=== PATIENT | female | born 1955 | race Caucasian/White ===

== ENCOUNTER → 2019-07-05 14:25 | Outpatient (CLI) | payer OTHER ==
--- NOTE | 2019-07-10 08:48 | ST ---
PATIENT:MARLINE HERZOG MEDICAL RECORD: [id number] SEX: F LOCATION:[facility] ORDER #: ADMISSION DATE: 07/05/19 AGE OF PATIENT: 63 REFERRING PHYSICIAN: INTERPRETING PHYSICIAN: DAVID BECKER MD DATE OF SERVICE: 07/05/2019 Baseline ECG is normal. Exercised for 6 minutes and 34 seconds on Curtis protocol. Maximum heart rate is 166 beats per minute, greater than 100% maximum predicted. No ECG changes of ischemia. No symptoms of ischemia. Normal blood pressure response to exercise. No arrhythmias noted. Fair exercise tolerance for age. TRANSINT:[id number] Voice Confirmation ID: [id number] DOCUMENT ID: [id number] DAVID BECKER MD at 0848 CC: [id number] DICTATION DATE: 07/07/19 1011 CLAIMS SPECIALIST: 07/07/19 1040 DEP CLI 07/05/[address] [address]
--- NOTE | 2019-07-10 08:49 | EC ---
PATIENT:MARLINE HERZOG DATE OF SERVICE: 07/05/19 SEX: F MEDICAL RECORD: [id number] DATE OF : 59 LOCATION:[facility], [facility]IN [facility] AGE OF PATIENT: 63 ADMISSION DATE: 07/05/19 REFERRING PHYSICIAN: INTERPRETING PHYSICIAN: DAVID BECKER MD ECHOCARDIOGRAM REPORT ECHO CHARGES 4 ECHO COMPLETE Date: 07/05/19 CLINICAL DIAGNOSIS: DYSPNEA ECHOCARDIOGRAPHIC MEASUREMENTS (adult normal given) AC root (d.<3.7cm) 2.9 cm LV Septum d (<1.2 cm> 1.2 cm Valve Excursion 1.4 cm LV Septum (systole) 1.4 cm Left Atria (s.<4.0cm> 3.3 cm LVPW d(<1.2cm) 1.1 cm RV (d.<2.3cm) 3.6 cm LVPW (sytole) 1.7 cm LV diastole(<5.6CM) 4.8 cm MV E-F(>70mm/sec) cm LV systole 2.9 cm LVOT Diameter 1.7 cm MV exc.(>10mm) 1.7 cm Est.ejection fraction (50-75%) % DOPPLER: LVIT cm/sec A 127 cm/sec E 32.0 cm/sec LA cm/sec RVSP 27 mmHg LVOT 105 cm/sec AOP1/2T m/s Asc. Ao 152 cm/sec RVOT 74 cm/sec RA cm/sec PA 95 cm/sec AV Gradient Peak 9.29 mmHg AV Mean 5.42 mmHg AV Area 1.6 cm MV Gradient Peak 7.66 mmHg MV Mean 3.32 mmHg MV Area cm COMMENTS: Radiology Physician: 2 NAHUM MEDEIROS Financial Foundations Representative: 3 Dr. Martinez TAPE# PACS Pericardial Effusion N DATE OF SERVICE: Adequate 2D, color flow imaging, spectral Doppler, and M-Mode Borderline LVH. LV internal dimensions are normal. Wall motion is normal. EF is greater than or equal to 55%. Aortic valve is tricuspid. No evidence of stenosis by Doppler interrogation. Left atrium is normal at 3.3 cm. Mitral valve shows no prolapse. Trace MR. Right-sided chambers are grossly normal. Mild TR. ECHOCARDIOGRAM REPORT [id number] MARLINE HERZOG TRANSINT:[id number] Voice Confirmation ID: [id number] DOCUMENT ID: [id number] DAVID BECKER MD at 0849 CC: [id number] DICTATION DATE: 07/07/19 1036 MOVIE PROJECTIONIST: 07/07/19 1150 DEP CLI 07/05/19 [facility] [address] [place] [address]
== END | disposition home or self-care (01) ==
LOC: D.HCCECHO 14:25
PROVIDERS: ATTEND Internal Medicine Interventional Cardiology
DX: I20.9 Angina pectoris, unspecified (principal); R06.00 Dyspnea, unspecified

== ENCOUNTER → 2020-03-26 08:48 | Outpatient (CLI) | payer OTHER | END | disposition home or self-care (01) | LOC: D.HCCARDIO 08:48 | PROVIDERS: ATTEND Internal Medicine Cardiovascular Disease | DX: I20.9 Angina pectoris, unspecified (principal) ==

== ENCOUNTER 2020-04-09 06:57 | Day surgery (SDC) | payer OTHER ==
[~2020-04-09] VITALS: Ht 165.1 cm; Wt 104.3 kg
--- NOTE | ~2020-04-09 | HEMODYNAMI ---
PATIENT:MARLINE HERZOG MEDICAL RECORD: [id number] : 59 LOCATION:D.CAT ADMISSION DATE: 04/09/20 Generatedon:04/09/20209:26 Patient name: MARLINE HERZOG Patient #: [id number] SSN: [id number] : 1955 Date of study: 04/09/2020 Page: Of Hemodynamic Procedure Report Patient Data Patient Demographics Procedure consent was obtained First Name: MARLINE Gender: Female Last Name: MINO : 1955 Patient #: [id number] Age: 64 year(s) Race: SSN: [id number] Additional ID: [id number] Contact details Address: [address] [place] [address] State: [place] City: [place] Zip code: [address] Past Medical History Performed procedures and imaging results Date Procedure Procedure Results Comments 03/26/2020 Stress testing Positive->Intermediate with SPECT MPI risk Allergies: No known allergies Admission Admission Data Admission Date: 04/09/2020 Admission Time: 6:57 Arrival Date: 04/09/2020 Arrival Time: 0:00 Admit Source: Other Insurance Payor: Private health insurance [facility] #: [id number] Height (in.): 65 BSA: 2.06 (m2) Height (cm.): 165.1 BMI: 36.61 (kg/m2) Weight (lbs.): 220 Weight (kg.): 99.79 Lab Results Lab Result Date: 04/09/2020 Lab Result Time: 0:00 Biochemistry Name Units Result Min Max BUN mg/dl 14 --(--*-)-- 7 18 Creatinine mg/dl 0.9 --(-*--)-- 0.6 1.3 eGFR ml/min 67.56646 *-(----)-- 90 120 NONAFRICAN CBC Name Units Result Min Max Hematocrit % 36.6 *-(----)-- 42 54 Hemoglobin g/dl 12 *-(----)-- 13.5 17.5 Procedure Procedure Types Cath Procedure Diagnostic Procedure [facility] w/Coronaries Sedation Charges Moderate Sedation up to 15 minutes Procedure Description Procedure Date Procedure Date: 04/09/2020 Procedure Start Time: 9:06 Procedure End Time: 9:23 Procedure Staff Name Function Lul Shaver MD Performing Physician Uriah Booth RN Nurse Ila Gonzalez RT Scrub Criss Maria RT Monitor Qing Bernal RT Spray Applicator Procedure Data Cath Procedure Fluoroscopy Diagnostic fluoroscopy Total fluoroscopy Time: 7.5 time: 7.5 min min Diagnostic fluoroscopy Total fluoroscopy dose: 986 dose: 986 mGy mGy Contrast Material Contrast Material Type Amount (ml) Isovue 370 70 Entry Location Entry Primary Successful Side Size Upsize Upsize Entry Closure Pedersen ccessful Closure Location (Fr) 1 (Fr) 2 (Fr) Remarks Device Remarks Radial Right 6 Fr Mechanical artery Short Compression Estimated blood loss: 5 ml Diagnostic catheters Device Type Used For End Catheter Placement DIAGNOSTIC [place] 110cm 5 Procedure Fr catheter ([id number]) DIAGNOSTIC [place] MOD 5Fr Procedure Catheter ([id number]) DIAGNOSTIC JL 3.5 5Fr Procedure catheter ([id number]) DIAGNOSTIC Pigtail 5Fr Procedure catheter ([id number]) Procedure Complications No complications Procedure Medications Medication Administration Route Dosage Oxygen etCO2 Nasal cannula 2 l/min Lidocaine 2% added to field 20 Heparin Flush Bag added to field 2 bags (1000units/500ml NS) 0.9% NaCl I.V. 100 ml/hr Radial Cocktail added to field 1 syringe (Verapamil 2mg/Nitro 400mcg/Heparin 1500units) Versed I.V. 1 mg Fentanyl I.V. 50 mcg Versed I.V. 1 mg Fentanyl I.V. 50 mcg Hemodynamics Rest BSA: 2.06 (m2) HGB: 12 (g/dl) O2 Consumption: Estimated: 203.59 (ml/min) O2 Cons umption indexed: Estimated:98.83 (ml/min/m) Heart Rate: 82 (bpm) Pressure Samples Time Site Value (mmHg) Purpose Heart Use Rate(bpm) 9:09 LV 147/100,86 Snapshot 87 Snapshots Pre Cath Intra NCS Post Cath Vital Signs Time Heart Resp SPO2 etCO2 NIBP (mmHg) Rhythm Pain Sedation Rate (ipm) (%) (mmHg) Status Level (bpm) 8:50:42 82 14 98 0 141/82(119) NSR 0 (11) 10(A) , No pain 8:54:58 88 10 98 0 139/91(118) NSR 0 (11) 10(A) , No pain 8:59:14 83 12 98 44.2 140/84(106) NSR 0 (11) 10(A) , No pain 9:03:20 79 19 100 41.3 124/73(112) NSR 0 (11) 10(A) , No pain 9:07:30 80 19 100 43.5 138/77(104) NSR 0 (11) 10(A) , No pain 9:11:41 83 10 100 42 132/73(108) NSR 0 (11) 10(A) , No pain 9:15:55 83 12 100 40.5 127/75(94) NSR 0 (11) 10(A) , No pain 9:20:07 85 15 100 42.8 139/78(109) NSR 0 (11) 10(A) , No pain Medications Time Medication Route Dose Verified Delivered Reason Notes Effectiveness by by 8:57:35 Oxygen etCO2 2 l/min Lul Kruse used for Nasal St Parveen Booth RN procedure cannula 8:57:42 Lidocaine 2% added 20ml Lul Mccarty for local to vial [facility], [facility]1983 anesthetic field MD ARAUJO 8:57:48 Heparin Flush added 2 bags Lul Mccarty used for Bag to [facility] procedure (1000units/500ml field MD ARAUJO NS) 8:57:57 0.9% NaCl I.V. 100 Lul Kruse Per ml/hr St Parveen Booth RN physician 9:03:23 Versed I.V. 1 mg Lul Sharlaie for sedation St Parveen Booth RN, MD 9:03:28 Fentanyl I.V. 50 mcg Lul Buffie for sedation St Parveen Booth RN, MD 9:07:49 Radial Cocktail added 1 Lul Lul for (Verapamil to syringe [facility], [facility]1983 vasodilation 2mg/Nitro field MD ARAUJO 400mcg/Heparin 1500units) 9:08:03 Versed I.V. 1 mg Lul Sharlaie for sedation St Parveen Booth RN, MD 9:08:07 Fentanyl I.V. 50 mcg Lul Magdalenoie for sedation St Parveen Booth RN, MD Procedure Log Time Note 8:04:59 Informed consent obtained and on chart 8:05:39 Diagnostic Cath Status : Elective 8:05:54 Arrival Date: 04/09/2020 12:00:00 AM 8:05:55 Admit Source: Other 8:05:59 Insurance Payor : Private health insurance 8:06:21 Patient Height : 65 inches 8:06:25 Patient Weight : 220 lbs 8:08:47 Patient allergic to No known allergies 8:09:06 Procedure Status Elective Heart Cath (OP). 8:09:08 Time tracking: Regular hours (M-F 7:00 - 5:00) 8:09:12 Plan of Care:Hemodynamics will remain stable., Cardiac rhythm will remain stable., Comfort level will be maintained., Respiratory function will remain adequate., Patient/ family verbilizes understanding of procedure., Procedure tolerated without complication., Recovers from procedure without complications.. 8:09:26 H&P Date Dictated: 03/11/2020 Within 30 days and on chart.. 8:09:26 Pre-procedure instructions explained to patient. 8:09:27 Pre-op teaching completed and patient verbalized understanding. 8:09:29 Family unavailable. 8:09:31 Patient NPO since Midnight. 8:12:50 Stress Test: yes; abnormal anterior and apical 8:12:53 Alarms reviewed by R. N. 8:12:54 Sharps counted by scrub and verified by R.N. 8:14:08 Lab Result : Hemoglobin 12 g/dl 8:14:08 Lab Result : Hematocrit 36.6 % 8:41:20 Qing Bernal RT(R) sent for patient. Start room use. 8:42:43 Lab results completed and on chart. 8:45:55 Patient received from Pre/Post Procedure Room to CCL 2 Alert and oriented. Tansferred to table in Supine position. 8:45:56 Warm blankets applied, and dagmar hugger turned on for patient comfort. 8:45:57 Correct patient and procedure confirmed by team. 8:45:57 ECG and BP/O2 sat monitors applied to patient. 8:46:01 Is the patient allergic to Iodine/contrast media? No. 8:46:03 Was the patient premedicated? N/A 8:49:32 Vital chart was started 8:49:34 Full Disclosure recording started 8:49:40 Is patient on blood thinner?No 8:49:42 Patient diabetic? No. 8:49:43 If diabetic: On Metformin? N/A 8:49:44 ----Pre-sedation anethsthesia assessment.---- 8:49:48 Previous problem with sedation/anesthesia? No ? 8:49:49 Snore? Yes 8:49:51 Sleep apnea? Yes 8:49:52 Deviated septum? No 8:49:53 Opens mouth fully? Yes 8:49:54 Sticks out tongue? Yes 8:49:56 Airway obstruction? No ? 8:49:58 Dentures? No ? 8:50:03 Pre procedure: right dorsailis pedis pulse 2+ Normal; easily identifiable; not easily obliterated 8:50:06 Modified Wilbert's test Ulnar < 7 seconds 8:50:07 Patient pain scale 0/10 ?. 8:50:12 IV patent on arrival in right antecubital with 0.9% NaCl at O. 8:50:18 Right Radial & Right Groin area was prepped with chlora-prep and draped in sterile fashion 8:50:23 Baseline sample Acquired. 8:50:28 Rhythm: sinus rhythm 8:50:31 Use device set Radial Dx or PCI 8:50:32 ACIST Syringe (73869) opened to sterile field. 8:50:33 Medline Cath Pack ([id number]) opened to sterile field. 8:50:34 Bag Decanter (2002) opened to sterile field. 8:50:34 ACIST Hand Control (82683) opened to sterile field. 8:50:35 ACIST Manifold (57590) opened to sterile field. 8:50:37 MBrace Wrist Support ([id number]) opened to sterile field. 8:50:39 EMERALD Guide Wire (985-378) opened to sterile field. 8:50:40 SHEATH 6FR RAIN (3741913) opened to sterile field. 8:57:35 Oxygen 2 l/min etCO2 Nasal cannula was administered by Uriah Booth RN; used for procedure; Verbal order read back and verified. 8:57:42 Lidocaine 2% 20ml vial added to field was administered by Lul Shaver MD; for local anesthetic; Verbal order read back and verified. 8:57:48 Heparin Flush Bag (1000units/500ml NS) 2 bags added to field was administered by Lul Shaver MD; used for procedure; Verbal order read back and verified. 8:57:57 0.9% NaCl 100 ml/hr I.V. was administered by Uriah Booth RN; Per physician; Verbal order read back and verified. 9:02:40 --------ALL STOP TIME OUT------ 9:02:40 Final Timeout: patient, procedure, and site verified with staff and physician. All members of the team are in agreement. 9:02:42 Right Radial & Right Groin site verified by team. 9:02:46 Fire Safety Assessment: A--An alcohol-based skin anteseptic being used preoperatively., C--Open oxygen or nitrous oxide is being used., D--An ESU, laser, or fiber-optic light is being used. 9:02:50 Physical assessment completed. ASA score P 2 - A patient with mild systemic disease as per Lul Shaver MD. 9:02:59 Sedation plan: IV Moderate Sedation Medication:Versed, Fentanyl 9:03:23 Versed 1 mg I.V. was administered by Uriah Booth RN; for sedation; Verbal order read back and verified. 9:03:28 Fentanyl 50 mcg I.V. was administered by Uriah Booth RN; for sedation; Verbal order read back and verified. 9:06:23 2) 60-89 Mildly reduced kidney function, and other findings (as for stage 1) point to kidney disease. 9:06:25 Maximum allowable contrast dose (3.7 X eGFR X 0.75)186 ml. 9:06:29 Procedure started. 9:06:34 Local anesthetic to right radial artery with Lidocaine 2% by Lul Shaver MD.INITIAL ACCESS ONLY 9:07:19 Lab Result : Creatinine 0.9 mg/dl 9:07:19 Lab Result : BUN 14 mg/dl 9:07:19 Lab Result : eGFR NONAFRICAN 67.11117 ml/min 9:07:32 A 6 Fr Short sheath was inserted into the Right Radial artery 9:07:49 Radial Cocktail (Verapamil 2mg/Nitro 400mcg/Heparin 1500units) 1 syringe added to field was administered by Lul Shaver MD; for vasodilation; Verbal order read back and verified. 9:08:03 Versed 1 mg I.V. was administered by Uriah Booth RN; for sedation; Verbal order read back and verified. 9:08:07 Fentanyl 50 mcg I.V. was administered by Uriah Booth RN; for sedation; Verbal order read back and verified. 9:08:24 A DIAGNOSTIC [place] 110cm 5 Fr catheter (654345) was advanced over the wire and used for Procedure. 9:10:27 LCA angiography performed. 9:10:30 Injector settings: Ml/sec: 3, Volume: 6, 9:12:33 Catheter exchanged over wire. 9:12:49 A DIAGNOSTIC [place] MOD 5Fr Catheter ([id number]) was advanced over the wire and used for Procedure. 9:13:53 RCA angiography performed. 9:13:55 Injector settings: Ml/sec: 3, Volume: 6, 9:14:41 Catheter exchanged over wire. 9:15:46 A DIAGNOSTIC JL 3.5 5Fr catheter ([id number]) was advanced over the wire and used for Procedure. 9:16:32 LCA angiography performed. 9:16:35 Injector settings: Ml/sec: 3, Volume: 6, 9:17:13 Catheter exchanged over wire. 9:17:16 A DIAGNOSTIC Pigtail 5Fr catheter (992913M) was advanced over the wire and used for Procedure. 9:17:22 LV gram done using CORONADO 9:17:38 Injector settings: Ml/sec: 5, Volume: 15, 9:20:40 UNABLE TO CANNULATE FOR LV GRAM. 9:20:55 Catheter removed. 9:20:59 ZEPHYR REGULAR TR BAND (662065) opened to sterile field. 9:21:13 Sheath removed intact; hemostasis achieved with Mechanical Compression to the Right Radial artery. 9:21:15 Procedure ended.(Physican Out) 9:21:25 Fluoroscopy time 07.50 minutes. 9:21:29 Fluoroscopy dose: 986 mGy 9:21:29 Flurop Dose total: 986 9:21:34 Dose Area Product 27912 mGy/cm. 9:21:37 Contrast amount:Isovue 370 70ml. 9:21:41 Maximum allowable dose exceeded? No. 9:21:42 Sharps counted by scrub and verified by R.N. 9:21:46 [place] band inflated with 10cc of air. 9:21:47 Post Procedure Pulses reassessed and unchanged 9:21:51 Post procedure: right dorsailis pedis pulse 2+ Normal; easily identifiable; not easily obliterated. 9:21:57 Post-procedure physical assessment completed. ASA score P 2 - A patient with mild systemic disease as per Lul Shaver MD. 9:21:59 Post procedure rhythm: unchanged. 9:22:02 Estimated blood loss: 5 ml 9:22:03 Post procedure instruction explained to patient.Patient verbalizes understanding. 9:22:04 Patient needs reinforcement of post procedure teaching. 9:22:23 Procedure type changed to Cath procedure, Diagnostic procedure, LHC, LHC w/Coronaries, Sedation Charges, Moderate Sedation up to 15 minutes 9:22:25 Procedure and supply charges have been captured, reviewed, submitted and are correct. 9:22:28 Procedure Complication : No complications 9:22:32 [facility] Findings: mild to moderate CAD (<70%) 9:22:36 Operative report dictated upon procedure completion. 9:22:36 See physician's report for complete and final results. 9:22:38 Report given to Pre/Post Procedure Room. 9:22:41 Patient transfered to Pre/Post Procedure Room with Stretcher. 9:23:21 Vital chart was stopped 9:23:23 Procedure ended. 9:23:23 Full Disclosure recording stopped 9:24:28 End room use (Document Last) 9:25:04 End room use (Document Last) 9:25:22 End room use (Document Last) Device Usage Item Name Manufacture Quantity Catalog Hospital Part Current Minima l Lot# / Number Charge Number Stock Stock Serial# Code ACIST Acist 1 75507 974924 562243 316388 20 Syringe Medical (38942) Systems Inc Medline Medline 1 [id number] 746554 42464 887771 5 Cath Pack ([id number]) Bag Microtek 1 288580 20923 575649 5 Decanter Medical Inc. () ACIST Hand Acist 1 95562 749403 539408 273104 5 Control Medical (12025) Systems Inc ACIST Acist 1 21670 461501 729856 030643 5 Manifold Medical (78170) Systems Inc MBrace Advanced 1 140-0250-00 027424 34601 321693 5 Wrist Vascular Support Dynamics (439506438) EMERALD Cardinal 1 240-642 649370 093147 078176 5 Guide Wire Health (198-455) SHEATH 6FR Cardinal 1 5447836 829071 3082849 655872 5 [facility] Health (4513889) DIAGNOSTIC Terumo 1 40-2433 185931 860149 535776 5 [place] 110cm 5 Fr catheter (207637) DIAGNOSTIC Cardinal 1 608064J 574831 615692 626194 15 [place] MOD 5Fr Health Catheter (770004B) DIAGNOSTIC Cardinal 1 346262D 879361 963199 132316 5 JL 3.5 5Fr Health catheter (831674D) DIAGNOSTIC Cardinal 1 [id number] 297141 461391 456779 5 Pigtail 5Fr Health catheter (131874Z) ZEPHYR Cardinal 1 121985 608880 2490176 778644 5 REGULAR TR Health BAND (616428) Signature Audit [place] Stage Time Signature Unsigned Intra-Procedure 04/09/2020 Criss Maria 9:25:04 AM RT(R) Intra-Procedure 04/09/2020 Uriah Booth RN 9:25:22 AM Intra-Procedure 04/09/2020 Lul Hernández 9:26:48 AM Parveen ARAUJO Signatures Performing Physician : Signature : Lul Shaver MD Date : Time : Nurse : Uriah Booth RN Signature : Date : Time : Monitor : Criss Maira Signature : RT Date : Time : [facility] [address] [place] [place] [address]
[2020-04-09] MEDS ORDERED: WELLBUTRIN SR150 MG PO (07:37)
[2020-04-09 08:00] VITALS: BP 137/68; Ht 165.1 cm; Wt 104.3 kg
[2020-04-09 08:06] LABS: BASOPHILS 0.3 % (0-2); EOSINOPHILS 1.9 % (0-7); HEMATOCRIT 36.6 % (36.0-48.0); IMMATURE GRANULOCYTES 0.2 % (0-5); LYMPHOCYTES 41.1 % (15-50); MCH 30.7 pg (26.0-34.0); MCHC 32.8 g/dL (31.0-37.0); MCV 93.6 fL (80.0-100.0); MONOCYTES 11.2 % (2-11); NEUTROPHILS 45.3 % (40-80); PLATELET COUNT 245 10x3/uL (130-400); RBC 3.91 10x6/uL (4.00-5.40); RDW 13.8 % (11.5-14.5); WBC 6.4 10x3/uL (4.8-10.8)
--- NOTE | 2020-04-09 08:18 | HP ---
PATIENT: MARLINE HERZOG MEDICAL RECORD: [id number] ACCOUNT: [id number] LOCATION:[facility] : 59 ADMISSION DATE: 04/09/20 PCP: MARY LANDERS HISTORY AND PHYSICAL EXAMINATION HISTORY OF PRESENT ILLNESS: A 64-year-old female with a history of abnormal ECG who was referred initially to the office after having an abnormal ECG and had symptomology noted with Cardiolite stress testing, found to have reversible ischemia, she is being brought to the lab for diagnostic angiography with definitive diagnosis. PAST MEDICAL HISTORY: Includes: 1. History of hypertension. 2. Abnormal ECG fibrillation. PHYSICAL EXAMINATION: GENERAL: Pleasant, in no acute distress, appears stated age. HEENT: Normocephalic, atraumatic. NECK: No JVD or bruit. HEART: Regular. LUNGS: Good excursion. ABDOMEN: Soft, nontender. EXTREMITIES: Pulses 2+ with no edema. DIAGNOSTIC DATA: Nuclear imaging is abnormal as described above. PLAN: We will plan for angiography. Further recommendations based on above. TRANSINT:[id number] Voice Confirmation ID: [id number] DOCUMENT ID: [id number] DAVID BECKER MD at 0818 CC: [id number] DICTATION DATE: 04/08/20 1340 PILOT MANAGER: 04/08/20 [address] [place] [address]
[2020-04-09 09:00] LABS: ANION GAP 10.2 mmol/L (8-16); CALCIUM 8.9 mg/dL (8.5-10.1); CARBON DIOXIDE 27.9 mmol/L (21.0-32.0); CHOL - HDL RATIO 3.1 ratio (2.3-4.1); CREATININE - SERUM 0.9 mg/dL (0.6-1.3); LDL-HDL RATIO 1.9 ratio (1.5-3.5); POTASSIUM - SERUM 4.1 mmol/L (3.5-5.1)
--- NOTE | 2020-04-09 09:35 | NUR ---
PT RECEIVED VIA STRETCHER FROM INVENTORY MANAGEMENT SPECIALIST FOR PROCEDURE. PT AWAKE BUT DROWSY. PT DENIES PAIN OR DISCOMFORT. IV PATENT INFUSING VIA R ARM PER ORDERS. PT PLACED ON CARDIAC MONITORS, HR NSR RTE 81, BP 142/72, RR 14, SAT 97 ON ROOM AIR. PT INSTRUCTED NOT TO USE R ARM, SHE VERBALIZED UNDERSTANDING. AT BS, CALL LIGHT IN REACH
--- NOTE | 2020-04-09 10:03 | NUR ---
ZBAND AND IMMOBILIZER IN PLACE, NO S/S HEMATOMA NOTED. PT VOIDED 300 CC CLEAR YELLOW URINE IN BEDPAN. HOB ELEVATED, PO FLUIDS GIVEN. VSS. PT DENIES OTHER NEEDS AT THIS TIME, AT BS
--- NOTE | 2020-04-09 10:47 | NUR ---
PT DOING WELL, 5CC AIR REMOVED FROM Z BAND, NO BLEEDING OR S/S HEMATOMA NOTED. VSS. PT DENIES NEEDS AT THIS TIME. CALL LIGHT IN REACH
--- NOTE | 2020-04-09 11:20 | NUR ---
IV REMOVED W CATH INTACT, MONITORS REMOVED. REMAINING AIR REMOVED FROM Z BAND, NO BLEEDING NOTED. PT UP TO DRESS FOR DISCHARGE.
--- NOTE | 2020-04-09 11:35 | NUR ---
DISCHARGE INSTRUCTIONS REVIEWED W PT AND SHE VERBALIZED UNDERSTANDING. ZBAND REMOVED NO BLEEDING OR S/S HEMATOMA NOTED. 2X2 AND SM TEGADERM DRESSING APPLIED. 1140 PT DISCHARGE VIA WC TO WAITING IN PRIVATE VEHICLE. PT HAD ALL BELONGINGS AND DISCHARGE INSTRUCTIONS
--- NOTE | 2020-04-11 08:09 | OP ---
PATIENT NAME: MARLINE HERZOG MEDICAL RECORD: [id number] :59 LOCATION:D.CAT ADMISSION DATE: SURGEON: DAVID BECKER MD DATE OF OPERATION: 04/09/2020 PROCEDURE: Left heart catheterization, selective coronary angiography, right radial approach. CATHETERS: Radial sheath, [place] catheter. The procedure was well tolerated. The patient was returned to the longo. Sheath removed. TR band was placed. FINDINGS: Left ventriculography not performed. EF normal via nuclear stress testing at 70%. CORONARY ANATOMY: LEFT MAIN: Left main is free of disease. LAD: Free of disease in the diagonal system. CIRCUMFLEX: Free of disease in the marginal system. RIGHT CORONARY ARTERY: Free of disease. IMPRESSION: Normal left ventricular systolic function, normal coronary anatomy. TRANSINT:[id number] Voice Confirmation ID: [id number] DOCUMENT ID: [id number] DAVID BECKER MD at 0809 CC: [id number] DICTATION DATE: 04/09/20927 LABOR EXPEDITER: 04/09/20 1246 [facility] 04/09/20 [address] [place] [address]
== END 2020-04-09 11:40 | disposition home or self-care (01) ==
LOC: D.CATH 06:57
PROVIDERS: ATTEND Internal Medicine Interventional Cardiology
DX: I20.0 Unstable angina (principal); I10 Essential (primary) hypertension; R94.31 Abnormal electrocardiogram [ECG] [EKG]; R06.00 Dyspnea, unspecified; R53.83 Other fatigue